=== PATIENT | female | born 1995 | race African-American/Black ===

== ENCOUNTER 2016-09-18 12:25 | Emergency (ER) | payer OTHER ==
[2016-09-18] MEDS ORDERED: DEXAMETHASONE 10 MG/ML VIAL PO STA (13:16)
[2016-09-18] MEDS ORDERED: DEXAMETHASONE 10 MG/ML VIAL ONE (13:18)
[2016-09-18] MEDS ORDERED: CHERRY SYRUP 10 ML UDC PO ONE (13:18)
== END 2016-09-18 14:21 | disposition home or self-care (01) ==
DX: H66.003 Acute suppurative otitis media without spontaneous rupture of ear drum, bilateral (principal)
CPT/HCPCS: 87070; 87430; 99283; A9270